=== PATIENT | female | born 1940 | race Caucasian/White ===

== ENCOUNTER → 2018-11-01 17:49 | Outpatient (CLI) | payer MEDICARE | END | disposition home or self-care (01) | LOC: D.MAMMO 15:15 | DX: Z12.31 Encounter for screening mammogram for malignant neoplasm of breast (principal) ==

== ENCOUNTER 2018-12-05 08:00 | Outpatient (CLI) | payer MEDICARE | END 2018-12-05 09:00 | disposition home or self-care (01) | LOC: D.MAMMO 08:00 | DX: R92.8 Other abnormal and inconclusive findings on diagnostic imaging of breast (principal) ==

== ENCOUNTER 2019-01-11 08:42 | Day surgery (SDC) | payer MEDICARE, OTHER ==
[~2019-01-11] VITALS: Ht 157.5 cm; Wt 51.4 kg
[2019-01-11 09:28] LABS: BASOPHILS 0.6 % (0-2); HEMATOCRIT 35.4 % (36.0-48.0); IMMATURE GRANULOCYTES 0.3 % (0-5); LYMPHOCYTES 26.1 % (15-50); MCH 31.4 pg (26.0-34.0); MCHC 33.9 g/dL (31.0-37.0); MCV 92.7 fL (80.0-100.0); MEAN PLATELET VOLUME 9.6 fL (7.4-10.4); MONOCYTES 9.1 % (2-11); NEUTROPHILS 55.9 % (40-80); PLATELET COUNT 421 10x3/uL (130-400); RBC 3.82 10x6/uL (4.00-5.40); RDW 14.2 % (11.5-14.5); WBC 6.7 10x3/uL (4.8-10.8)
[2019-01-11 09:30] LABS: CALCIUM 10.2 mg/dL (8.5-10.1); CARBON DIOXIDE 23.9 mmol/L (21.0-32.0); POTASSIUM - SERUM 3.9 mmol/L (3.5-5.1)
[2019-01-11] MEDS ORDERED: FERROUS SULFAT325 MG PO (10:25)
[2019-01-11] MEDS ORDERED: ESTRACE 0.5 MG0.5 MG PO (10:25)
[2019-01-11] MEDS ORDERED: GEMFIBROZIL600 MG PO (10:25)
[2019-01-11] MEDS ORDERED: FLOMAX0.4 MG PO (10:27)
[2019-01-11] MEDS ORDERED: LISINOPRIL20 MG PO (10:28)
[2019-01-11] MEDS ORDERED: CRESTOR20 MG (10:28)
[2019-01-11] MEDS ORDERED: MAXZIDE 75/501 TAB PO (10:29)
[2019-01-11] MEDS ORDERED: FENOFIBRATE54 MG PO (10:30)
[2019-01-11 10:38] VITALS: BP 147/62; Ht 157.5 cm; Wt 51.4 kg
--- NOTE | 2019-01-13 07:24 | OP ---
PATIENT NAME: ALICIA BRITO MEDICAL RECORD: [id number] :44 LOCATION:[facility] ADMISSION DATE: SURGEON: МАРИНА SAMUEL DO DATE OF OPERATION: 01/11/2019 PROCEDURE: Colonoscopy with biopsies and polypectomy. INDICATIONS FOR PROCEDURE: Occult blood in stools, change in bowel habits, right lower quadrant abdominal pain, abnormal weight loss. The patient has had a previous colonoscopy, which was approximately 10 years ago. SCOPE: Olympus video pediatric colonoscope. MEDICATIONS: Propofol 350 mg IV per anesthesia. WITHDRAWAL TIME: 16 minutes. ESTIMATED BLOOD LOSS: Minimal. COMPLICATIONS: None. FINDINGS: Informed consent was given. The patient was made comfortable with the above medication. After reaching an adequate level of sedation by slow IV push, the patient was placed on her left side. A digital rectal examination was performed and was normal. The endoscope was then advanced under direct visualization through the rectum to the cecum, confirmed by the presence of the appendiceal orifice and ileocecal valve. The endoscope was slowly withdrawn and mucosa was carefully examined. The difficulty of the colonoscopy was somewhat moderate due to adhesions involving the left lower quadrant and a tortuous colon making passage of the endoscope somewhat difficult. The patient position changes were utilized and some abdominal pressure was also used. There were 2 polyps visualized on today's examination. They were both located in the sigmoid colon. They were both benign appearing and sessile and ranged in size from 3 to 7 mm in diameter. One was removed using hot forceps and the other was removed using a hot snare. Both were retrieved. There was mild diverticulosis involving the entire colon. Random cold forceps biopsies were taken to submit for histopathology and to rule out the presence of microscopic colitis. Retroflexion was performed in the rectum with a normal appearing rectal wall. The endoscope was withdrawn from the patient. The patient tolerated the procedure well and there were no complications. IMPRESSION: 1. Two polyps as described above, removed using a combination of hot forceps and hot snare. 2. Mild diverticulosis of the whole colon. 3. Left-sided adhesions. PLAN AND RECOMMENDATIONS: 1. Discharge home when recovery parameters are met. 2. Follow up biopsy specimen results. 3. High fiber diet. 4. Continue current medications. 5. Further recommendations of medications based upon symptoms may be given after results of biopsy reviewed. 6. Right upper quadrant ultrasound to rule out gallbladder pathology as a cause OPERATIVE REPORT [id number] ALICIA BRITO of the pain, although, her right-sided pain seems to be too low to be her gallbladder. TRANSINT:[id number] Voice Confirmation ID: [id number] DOCUMENT ID: [id number] МАРИНА SAMUEL DO at 0724 CC: [id number] DICTATION DATE: 01/11/19 1147 PROJECT ADMIN: 01/11/19 1311 [facility] 01/11/19 [place] [id number] [place] [id number]
== END 2019-01-11 13:20 | disposition home or self-care (01) ==
LOC: D.OPS 08:42
PROVIDERS: Anesthesiology
DX: D12.5 Benign neoplasm of sigmoid colon (principal); K63.5 Polyp of colon; K57.30 Diverticulosis of large intestine without perforation or abscess without bleeding; K66.0 Peritoneal adhesions (postprocedural) (postinfection); Z01.812 Encounter for preprocedural laboratory examination